=== PATIENT | female | born 1990 | race Caucasian/White ===

== ENCOUNTER 2017-04-10 15:18 | Emergency (ER) | payer OTHER ==
[2017-04-10 15:19] VITALS: BMI 30.9
--- NOTE | 2017-04-10 15:43 | ED PDOC ---
Arrival/HPI - General Chief Complaint: Back Pain Time Seen by Provider: 04/10/17 15:34 Historian: Patient - History of Present Illness Narrative History of Present Illness (Text): 04/10/17 15:40 26yo female with history of chronic lower back pain secondary to injury from 6years ago, present with sharp lower back, nonradiating back pain. Patient notes history of similar pain in the past. States pain is usually worse with sitting. she states that she saw a specialist 2years ago and surgery was recommended, but she was told to wait until she is older. She states she was taking Ibuprofen at home for the past 4days without relieve. She denies recent trauma, focal weakness, paresthesia, saddle anesthesia, urinary/fecal incontinence, abdominal pain, urinary symptoms, any other complaint. Past Medical History - Provider Review Nursing Documentation Reviewed: Yes - Infectious Disease Hx of Infectious Diseases: None - Tetanus Immunization Tetanus Immunization: Unknown - Cardiac Hx Angina: No - Hematological/Oncological Hx Anemia: Yes - Musculoskeletal/Rheumatological Hx Musculoskeletal Disorders: Yes Other/Comment: pt reports hx of broken back - Psychiatric Hx Depression: No Hx Emotional Abuse: No Hx Physical Abuse: No Hx Substance Use: No - Past Surgical History Past Surgical History: No Previous - Anesthesia Hx Anesthesia: No - Suicidal Assessment Feels Threatened In Home Enviroment: No Family/Social History - Physician Review Nursing Documentation Reviewed: Yes Family/Social History: Unknown Family HX Smoking Status: Never Smoked Hx Alcohol Use: No Hx Substance Use: No Hx Substance Use Treatment: No Allergies/Home Meds Allergies/Adverse Reactions: Allergies No Known Allergies Allergy (Verified 04/10/17 15:21) Review of Systems - Physician Review All systems were reviewed & negative as marked: Yes - Review of Systems Constitutional: Normal Eyes: Normal ENT: Normal Respiratory: Normal Cardiovascular: Normal Gastrointestinal: Normal Genitourinary Female: Normal Musculoskeletal: Back Pain Skin: Normal Neurological: Normal Endocrine: Normal Hemo/Lymphatic: Normal Psychiatric: Normal Physical Exam Vital Signs Reviewed: Yes Vital Signs Temp Pulse Resp BP Pulse Ox 04/10/17 15:24 98.6 F 78 19 101/64 96 Temperature: Afebrile Blood Pressure: Normal Pulse: Regular Respiratory Rate: Normal Appearance: Positive for: Well-Appearing, Non-Toxic, Comfortable Pain Distress: None Mental Status: Positive for: Alert and Oriented X 3 - Systems Exam Head: Present: Atraumatic, Normocephalic Pupils: Present: PERRL Extroacular Muscles: Present: EOMI Conjunctiva: Present: Normal Mouth: Present: Moist Mucous Membranes Neck: Present: Normal Range of Motion Respiratory/Chest: Present: Clear to Auscultation, Good Air Exchange. No: Respiratory Distress, Accessory Muscle Use Cardiovascular: Present: Regular Rate and Rhythm, Normal S1, S2. No: Murmurs Abdomen: Present: Normal Bowel Sounds. No: Tenderness, Distention, Peritoneal Signs Back: Present: Midline Tenderness, Pain with Leg Raise (B/L). No: Paraspinal Tenderness Upper Extremity: Present: Normal Inspection. No: Cyanosis, Edema Lower Extremity: Present: Normal Inspection. No: Edema Neurological: Present: GCS=15, CN II-XII Intact, Speech Normal Skin: Present: Warm, Dry, Normal Color. No: Rashes Psychiatric: Present: Alert, Oriented x 3, Normal Insight, Normal Concentration Medical Decision Making ED Course and Treatment: 04/10/17 16:50 Pt's pain was controlled in ED with medication. She was ambulatory and have no focal neurological deficit. She notes that she sees orthopedist at [facility]. She will be DC home with Naprosyn, flexeril and Tramadol. Referred to her ortho. - Medication Orders Current Medication Orders: Discontinued Medications Cyclobenzaprine HCl (Flexeril) 10 mg PO STAT STA Stop: 04/10/17 15:40 Last Admin: 04/10/17 16:07 Dose: 10 mg Dexamethasone (Decadron Inj) 10 mg IM STAT STA Stop: 04/10/17 15:40 Last Admin: 04/10/17 16:08 Dose: 10 mg IM Administration Charges Document 04/10/17 16:08 [facility] (Rec: 04/10/17 16:08 [facility] [id number]) Injection Site MAR Injection Site Left Arm Charges for Administration # of IM Administrations 1 Ketorolac Tromethamine (Toradol) 60 mg IM STAT STA Stop: 04/10/17 15:40 Last Admin: 04/10/17 16:08 Dose: 60 mg MAR Pain Assessment Document 04/10/17 16:08 [facility] (Rec: 04/10/17 16:08 [facility] [id number]) Pain Reassessment Is this a pain reassessment? No Sleep Is patient sleeping during reassessment? No Presence of Pain Presence of Pain Yes Pain Scale Used Pain Scale Used Numeric Location Upper or Lower Lower Pain Location Body Site Back IM Administration Charges Document 04/10/17 16:08 [facility] [place] (Rec: 04/10/17 16:08 [facility] [id number]) Charges for Administration # of IM Administrations 1 Disposition/Present on Arrival - Present on Arrival Any Indicators Present on Arrival: No History of DVT/PE: No History of Uncontrolled Diabetes: No Urinary Catheter: No History of Decub. Ulcer: No History Surgical Site Infection Following: None - Disposition Have Diagnosis and Disposition been Completed?: Yes Diagnosis: Chronic back pain Disposition: HOME/ ROUTINE Disposition Time: 16:55 Patient Plan: Discharge Condition: STABLE Discharge Instructions (ExitCare): Chronic Pain (DC) Additional Instructions: Follow up with your Orthopedist Return to ED for any new symptoms Prescriptions: Cyclobenzaprine [Cyclobenzaprine HCl] 10 mg PO TID #12 tab Naproxen [Naprosyn] 500 mg PO BID #14 tablet traMADol [Ultram] 50 mg PO TID #10 tab Referrals: PCP,NO [Primary Care Provider] - Follow up with primary Forms: [employer] ([place])
[2017-04-10 17:18] VITALS: BP 118/73; PULSE 77; RESP 18; TEMP 98.3; O2SAT 99
== END 2017-04-10 17:18 | disposition home or self-care (01) ==
LOC: ED 15:18
DX: M54.5 Low back pain (principal); G89.29 Other chronic pain
CPT/HCPCS: 96372; 99283; J1100; J1885